=== PATIENT | female | born 1985 | race Caucasian/White ===

== ENCOUNTER 2024-07-28 08:23 | Outpatient (RCR) | payer OTHER, SELFPAY | END 2024-10-15 23:59 | disposition home or self-care (01) | LOC: ANHVASCINF 08:23 | PROVIDERS: Visit Provider Pediatrics | DX: Z20.3 Contact with and (suspected) exposure to rabies (principal); Z29.13 Encounter for prophylactic Rho(D) immune globulin | CPT/HCPCS: 90471; 90675 ==